=== PATIENT | male | born 1995 | race Caucasian/White ===

== ENCOUNTER 2016-06-05 18:29 | Emergency (ER) | payer OTHER ==
[~2016-06-05] VITALS: Ht 179.1 cm; Wt 59.0 kg
--- NOTE | 2016-06-05 19:17 | ED HEADACHE COMPLAINT ---
History of Present Illness General Chief Complaint: Headache Stated Complaint: ÁLVAREZ Source: patient Exam Limitations: no limitations Vital Signs & Intake/Output Vital Signs & Intake/Output Vital Signs Date Time Temp Pulse Resp B/P Pulse O2 O2 Flow FiO2 Ox Delivery Rate 06/05 2130 96.6 84 18 119/66 100 Room Air 06/05 1931 Room Air 06/05 1834 97.5 118 20 152/83 100 Room Air ED Intake and Output 06/06 0000 06/05 1200 Intake Total 1000 Output Total Balance 1000 Intake, IV 1000 Patient 130 lb Weight Allergies Coded Allergies: No Known Allergies (06/05/16) Reconcile Medications Ibuprofen 800 MG TABLET 1 TAB PO TID PRN PAIN/HEADACHE Ondansetron (Zofran Odt) 4 MG TAB.RAPDIS 1 TAB SL TID PRN NAUSEA Triage Note: TRIAGE: PT BIBA FROM WORK S/P SEEING BLACK SPOTS IN EYES, STATES HIS VISION BLURRED. ONSET 14:32. TOOK A NAP AND WOKE UP WITH WORSENING PAIN AND NOW HEAD PAIN, STOMACH PAIN AND N/V. STATES "THE VOMITING WAS WEIRD BECAUSE IT LOOKED LIKE STOMACH ACID BUT IT DIDN'T TASTE ACIDIC AND IT JUST TASTED REALLY WEIRD". Triage Nurses Notes Reviewed? yes Onset: Gradual Duration: hour(s):, getting worse Timing: recent history Quality/Severity: moderate Head Injury Location: global, and worse around right eye Modifying Factors: Improves With: rest. Worsens With: other (worse with light). Associated Symptoms: nausea/vomiting, vision changes HPI: 21-year-old gentleman presents with headache for the past 6-7 hours. 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 He has been under "a lot of stress lately." He states that while he was at work at approximately 3:00 he started seeing spots in both of his eyes. He then developed a diffuse headache and nausea vomiting. He states, "I threw up a bunch of times. The light bothers my eyes." Past History Travel History Traveled to [place] past 21 day No Medical History Any Pertinent Medical History? see below for history Neurological: NONE EENT: NONE Cardiovascular: NONE Respiratory: NONE Gastrointestinal: NONE Hepatic: NONE Renal: NONE Musculoskeletal: NONE Psychiatric: NONE Endocrine: NONE Blood Disorders: NONE Cancer(s): NONE NET MANAGER/Reproductive: NONE Surgical History Surgical History: none Psychosocial History What is your primary language Hebrew Tobacco Use: Never used ETOH Use: occasional use Illicit Drug Use: denies illicit drug use Family History Hx Contributory? No Review of Systems Review of Systems Constitutional: Reports: no symptoms. Eyes: Reports: no symptoms. Ears, Nose, Throat, Mouth: Reports: no symptoms. Respiratory: Reports: no symptoms. Cardiovascular: Reports: no symptoms. Gastrointestinal/Abdominal: Reports: no symptoms. Genitourinary: Reports: no symptoms. Musculoskeletal: Reports: no symptoms. Skin: Reports: no symptoms. Neurological/Psychological: Reports: no symptoms. Hematologic/Endocrine: Reports: no symptoms. Endocrine: Reports: no symptoms. Immunologic/Allergic: Reports: no symptoms. All Other Systems: Reviewed and Negative Physical Exam Physical Exam General Appearance: well developed/nourished, mild distress, moderate distress Head: atraumatic, normal appearance Eyes: Bilateral: normal appearance, PERRL, EOMI. Ears, Nose, Throat: normal pharynx, normal ENT inspection Neck: normal inspection, supple, full range of motion Respiratory: normal breath sounds, chest non-tender, no respiratory distress, quiet respiration, lungs clear Cardiovascular: regular rate/rhythm Gastrointestinal: normal bowel sounds, soft, non-tender, no organomegaly Extremities: normal inspection, normal capillary refill, normal range of motion, no edema Psychiatric: awake, alert, oriented x 3 Cranial Nerves: normal hearing, normal speech, PERRL Coordination/Gait: normal finger to nose Motor/Sensory: no motor/sensory deficits Reflexes: 2+: bicep (R), bicep (L). Skin: intact, normal color, warm/dry Core Measures Severe Sepsis Present: No Septic Shock Present: No Progress Differential Diagnosis: cluster ÁLVAREZ, encephalitis, IC mass/tumor, intracranial Hem., migraine ÁLVAREZ, musculoskeletal pain, subarach. Hem., tension ÁLVAREZ Plan of Care: Orders Procedure Date/time Status LIPASE 06/05 1940 Complete HEPATIC FUNCTION PANEL 06/05 1940 Complete CBC WITHOUT DIFFERENTIAL 06/05 1940 Complete BASIC METABOLIC PANEL 06/05 1940 Complete AMYLASE 06/05 1940 Complete Laboratory Tests 06/05/161951: Anion Gap 11, Estimated GFR > 60, BUN/Creatinine Ratio 20.0, Glucose 93, Calcium 9.6, Total Bilirubin 0.9, Direct Bilirubin 0.3, AST 29, ALT 47, Alkaline Phosphatase 82, Total Protein 7.4, Albumin 4.9, Amylase 61, Lipase 68, CBC w Diff NO MAN DIFF REQ, RBC 5.70, MCV 86.7, MCH 29.8, RDW 12.8, MPV 7.7, Gran % 84.9 H, Lymphocytes % 8.7 L, Monocytes % 5.7, Eosinophils % 0.7, Basophils % 0 L, Absolute Granulocytes 14.0 H, Absolute Lymphocytes 1.4, Absolute Monocytes 0.9 H, Absolute Eosinophils 0.1, Absolute Basophils 0, PUBS MCHC 34.4 Diagnostic Imaging: Viewed by Me: CT Scan. Discussed w/RAD: CT Scan. Radiology Impression: head ct - neg...full report below. Comments: PATIENT: MARSHAL GIL PRESENT AGE: 21 PATIENT ACCOUNT NO: [id number] : 95 LOCATION: [facility] ORDERING PHYSICIAN: ABDULKADIR CAMARILLO MD SERVICE DATE: 06/05/16 EXAM TYPE: CAT - CT HEAD WO IV CONTRAST EXAMINATION: CT HEAD WITHOUT CONTRAST CLINICAL INFORMATION: Headache. COMPARISON: None. TECHNIQUE: Contiguous axial imaging was performed from the skull base to vertex without intravenous administration of contrast. DLP: 529 mGy-cm FINDINGS: No acute intracranial abnormality. No acute intracranial hemorrhage, mass or mass effect or abnormal extra-axial fluid collections. The density within the dural venous sinuses is within normal limits. The ventricles are normal in size, without hydrocephalus. There are no focal areas of hypoattenuation within a vascular distribution to suggest acute transcortical ischemia. The basilar cisterns are patent. No acute calvarial abnormality is identified. Soft tissues appear unremarkable. The imaged paranasal sinuses and mastoid air cells are well aerated. IMPRESSION: No acute intracranial abnormality. DICTATED BY: ALEX FERRARA MD DATE/TIME DICTATED:06/05/162025 OVERNIGHT BABYSITTER:CHARLES DATE/TIME TRANSCRIBED:06/05/162025 CONFIDENTIAL, DO NOT COPY WITHOUT APPROPRIATE AUTHORIZATION. <Electronically signed in Other Vendor System> SIGNED BY: ALEX FERRARA MD 06/05/162030 Departure Departure Disposition: HOME OR SELF CARE Condition: Stable Clinical Impression Primary Impression: Headache Referrals: PATIENT HAS NO PRIMARY CARE DR (PCP/Family) Departure Forms: Customer Survey General Discharge Information Prescriptions: Current Visit Scripts Ibuprofen 1 TAB PO TID PRN PAIN/HEADACHE #60 TAB Ondansetron (Zofran Odt) 1 TAB SL TID PRN NAUSEA #10 TAB Ref 1 Comments 06/05/16, 20:31... I placed the patient on 2 L nasal cannula for comfort. He states that the headache around his right eye disappeared almost immediately. This is most consistent with a cluster type headache. --- at discharge... head ct negative... pt feels well... safe for discharge with close follow up advised.
[2016-06-05 20:08] LABS: ABSOLUTE BASOPHIL COUNT 0 /CUMM (0.0-0.2); ABSOLUTE EOSINOPHIL COUNT 0.1 /CUMM (0.0-0.7); ABSOLUTE LYMPH COUNT 1.4 /CUMM (1.2-3.4); ABSOLUTE MONOCYTE COUNT 0.9 /CUMM (0.10-0.60); BASOPHIL % 0 % (0.0-2.0); EOSINOPHIL % 0.7 % (0-5); GRANULOCYTE % 84.9 % (42.2-75.2); HEMATOCRIT 49.4 % (42-52); MEAN CORPUSCULAR HGB 29.8 PG (27.0-31.0); MEAN CORPUSCULAR HGB CONC 34.4 G/DL (33.0-37.0); MEAN CORPUSCULAR VOLUME 86.7 FL (80.0-94.0); MEAN PLATELET VOLUME 7.7 FL (7.4-10.4); PLATELET COUNT 218 /CUMM (130-400); RBC DISTRIBUTION WIDTH 12.8 % (11.5-14.5); WHITE BLOOD CELL COUNT 16.4 /CUMM (4.8-10.8)
--- NOTE | 2016-06-05 20:31 | CT SCAN REPORT ---
EXAMINATION: CT HEAD WITHOUT CONTRAST CLINICAL INFORMATION: Headache. COMPARISON: None. TECHNIQUE: Contiguous axial imaging was performed from the skull base to vertex without intravenous administration of contrast. DLP: 529 mGy-cm FINDINGS: No acute intracranial abnormality. No acute intracranial hemorrhage, mass or mass effect or abnormal extra-axial fluid collections. The density within the dural venous sinuses is within normal limits. The ventricles are normal in size, without hydrocephalus. There are no focal areas of hypoattenuation within a vascular distribution to suggest acute transcortical ischemia. The basilar cisterns are patent. No acute calvarial abnormality is identified. Soft tissues appear unremarkable. The imaged paranasal sinuses and mastoid air cells are well aerated. IMPRESSION: No acute intracranial abnormality.
[2016-06-05] MEDS ORDERED: ZOFRAN ODT4 M1 SL (21:12)
[2016-06-05] MEDS ORDERED: IBUPROFEN800 M1 PO (21:12)
[2016-06-05 21:31] VITALS: BP 119/66
== END 2016-06-05 21:41 ==
LOC: ERH 18:29
PROVIDERS: Pediatrics
DX: R51 Headache (principal)
CPT/HCPCS: 96374; 96375; J2405

== ENCOUNTER 2016-08-04 16:41 | Emergency (ER) | payer OTHER ==
[~2016-08-04] VITALS: Ht 177.8 cm; Wt 65.8 kg
[~2016-08-04 16:41] MED LIST: IBUPROFEN800 M1 PO; ZOFRAN ODT4 M1 SL
--- NOTE | 2016-08-04 17:38 | ED PSYCHIATRIC COMPLAINT ---
History of Present Illness General Chief Complaint: Psychiatric Related Complaint Stated Complaint: BIBA FOR +SI Source: patient Exam Limitations: no limitations Allergies Coded Allergies: Penicillins (UNKNOWN PER PT 08/04/16) Triage Note: PT RADHA FROM HOME. HE WAS AT WORK TODAY WHEN HE MADE SOME SI COMMENTS TO HIS BOSS WHOM CALLED 911 FOR HELP. HE HAD LEFT WORK AND WENT HOME WHERE THE POLICE FOUND HIM, CALM AND COOPERATIVE AND DENIED SI THOUGHTS. HE HAS + HX OF AUTHISM. Triage Nurses Notes Reviewed? yes HPI: This patient is a 21-year-old male with past medical history autism who presented to the emergency department brought in by ambulance for evaluation of suicidal statements at work. 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 He reported that he made a statement to his boss today that he does not want to live anymore. The patient reported, "I don't want to live anymore, but I would never do anything to myself. Please just let me leave and go to work." The patient reported that he does not want anything to eat until he finishes his work. He denied any other associated symptoms. The patient denied any homicidal ideation. He denied any illicit drug use or alcohol use. He denied any audio or visual hallucinations. (SUZY VANG PA-C) Vital Signs & Intake/Output Vital Signs & Intake/Output Vital Signs Date Time Temp Pulse Resp B/P Pulse O2 O2 Flow FiO2 Ox Delivery Rate 08/05 0759 96.9 80 18 112/71 99 Room Air 08/05 0607 96.4 73 18 107/53 99 Room Air 08/04 1742 97.8 114 20 145/87 99 Room Air ED Intake and Output 08/05 0000 08/04 1200 Intake Total 0 Output Total Balance 0 Intake, Oral 0 Patient 145 lb Weight Past History Travel History Traveled to [place] past 21 day No Medical History Any Pertinent Medical History? see below for history Neurological: NONE EENT: NONE Cardiovascular: NONE Respiratory: NONE Gastrointestinal: NONE Hepatic: NONE Renal: NONE Musculoskeletal: NONE Psychiatric: autism Endocrine: NONE Blood Disorders: NONE Cancer(s): NONE SAW RUNNER/Reproductive: NONE Surgical History Surgical History: none Psychosocial History What is your primary language Niuean Tobacco Use: Never used Family History Hx Contributory? No (SUZY VANG PA-C) Review of Systems Review of Systems Constitutional: Reports: no symptoms. EENTM: Reports: no symptoms. Respiratory: Reports: no symptoms. Cardiovascular: Reports: no symptoms. GI: Reports: no symptoms. Musculoskeletal: Reports: no symptoms. Skin: Reports: see HPI. Neurological/Psychological: Reports: no symptoms. All Other Systems: Reviewed and Negative (SUZY VANG PA-C) Physical Exam Physical Exam General Appearance: well developed/nourished, alert, awake, mild distress Neurological/Psychiatric: no motor/sensory deficits, awake, alert, anxious, ecological risk assessor II-XII nml as tested, depressed affect, oriented x 3 Comments: Well-developed well-nourished person who is tearful HEENT: Normal EENT exam, Head normocephalic, moist mucous membranes PERRLA bilaterally Neck: Supple, no lymphadenopathy Back: Normal gait Cardiovascular: Tachycardic with regular rhythm Respiratory: Chest nontender. No respiratory distress. Breath sounds clear to auscultation bilaterally Extremity: Normal and equal pulses Neuro: Alert oriented x3, cranial nerves II through XII grossly intact. Skin: No appreciable rash on exposed skin, skin is warm and dry. Psych: Mood and affect is depressed SAD PERSONS Done? yes (SUZY VANG PA-C) Progress Differential Diagnosis: dementia, drug intoxication, drug overdose, drug withdrawal, electrolyte abnormality, encephalitis, hypothyroidism, major depressive disorder, generalized anxiety disorder Hand-Off Endorsed To: LUCILLE ENRIQUE,FORREST Scott Endorsed Time: 99 Pending: consult Comments: Patient reported that he has a very high heart rate whenever he gets stressed out. He reported that this is normal for him. THIS PATIENT WILL BE RE-EVALUATED BY CRISIS IN THE MORNING. (SUZY VANG PA-C) Plan of Care: Orders Procedure Date/time Status Regular Diet 08/05 B Active Continuous Observation Monitor 08/05 1900 Active Continuous Observation Monitor 08/05 1500 Active Continuous Observation Monitor 08/05 1100 Active Continuous Observation Monitor 08/05 0700 Active Laboratory Tests 08/04/16 1848: Urine Opiates Screen < 100.00, Methadone Screen < 40, Barbiturate Screen < 60, Ur Phencyclidine Scrn < 6.00, Amphetamines Screen < 100, U Benzodiazepines Scrn < 85, Urine Cocaine Screen < 50, Urine Cannabis Screen 11.20 08/04/16 1741: Anion Gap 12, Estimated GFR > 60, BUN/Creatinine Ratio 22.5, Glucose 93, Calcium 9.9, Total Bilirubin 0.7, AST 26, ALT 46, Alkaline Phosphatase 67, Total Protein 7.1, Albumin 4.8, Globulin 2.3, Albumin/Globulin Ratio 2.1, CBC w Diff NO MAN DIFF REQ, RBC 5.40, MCV 86.6, MCH 29.8, RDW 13.0, MPV 7.9, Gran % 67.5, Lymphocytes % 23.6, Monocytes % 6.4, Eosinophils % 2.0, Basophils % 0.5, Absolute Granulocytes 4.2, Absolute Lymphocytes 1.5, Absolute Monocytes 0.4, Absolute Eosinophils 0.1, Absolute Basophils 0, PUBS MCHC 34.4, Serum Alcohol < 10.0 Hand-Off Endorsed To: JUANITA FALL MD Endorsed Time: 0700 Pending: consult (RE-EVAL) (LUCILLE ENRIQUE,FORREST Scott) Comments: Cleared by psychiatry for discharge (JUANITA FALL MD) Departure Departure Condition: Stable Referrals: PATIENT HAS NO PRIMARY CARE DR (PCP/Family) Departure Forms: Customer Survey General Discharge Information (SUZY VANG PA-C) Departure Time of Disposition: 927 Disposition: HOME OR SELF CARE Clinical Impression Primary Impression: Autism Secondary Impressions: Suicidal ideation Additional Instructions: Follow up with the recommendations of the psychiatric secretary PA/SAND BUFFER Co-Sign Statement Statement: ED Attending supervision documentation- x I saw and evaluated the patient. I have also reviewed all the pertinent lab results and diagnostic results. I agree with the findings and the plan of care as documented in the PA's/SAND BUFFER's documentation. [] I have reviewed the ED Record and agree with the PA's/SAND BUFFER's documentation. [] Additions or exceptions (if any) to the PAs/SAND BUFFER's note and plan are summarized below: [] (JUANITA FALL MD) ED Attending supervision documentation- x I saw and evaluated the patient. I have also reviewed all the pertinent lab results and diagnostic results. I agree with the findings and the plan of care as documented in the PA's/SAND BUFFER's documentation. [] I have reviewed the ED Record and agree with the PA's/SAND BUFFER's documentation. [] Additions or exceptions (if any) to the PAs/SAND BUFFER's note and plan are summarized below: [] (JUANITA FALL MD)
[2016-08-04 18:03] LABS: ABSOLUTE BASOPHIL COUNT 0 /CUMM (0.0-0.2); ABSOLUTE EOSINOPHIL COUNT 0.1 /CUMM (0.0-0.7); ABSOLUTE GRANULOCYTE CT 4.2 /CUMM (1.4-6.5); ABSOLUTE LYMPH COUNT 1.5 /CUMM (1.2-3.4); ABSOLUTE MONOCYTE COUNT 0.4 /CUMM (0.10-0.60); BASOPHIL % 0.5 % (0.0-2.0); GRANULOCYTE % 67.5 % (42.2-75.2); HEMATOCRIT 46.8 % (42-52); MEAN CORPUSCULAR HGB 29.8 PG (27.0-31.0); MEAN CORPUSCULAR HGB CONC 34.4 G/DL (33.0-37.0); MEAN CORPUSCULAR VOLUME 86.6 FL (80.0-94.0); MEAN PLATELET VOLUME 7.9 FL (7.4-10.4); PLATELET COUNT 220 /CUMM (130-400); WHITE BLOOD CELL COUNT 6.3 /CUMM (4.8-10.8)
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
[2016-08-05 07:59] VITALS: BP 112/71
== END 2016-08-05 09:39 ==
LOC: ERH 16:41
PROVIDERS: Physician Assistant
DX: F84.0 Autistic disorder (principal); R45.851 Suicidal ideations
CPT/HCPCS: 80307; G0463; G0480